=== PATIENT | female | born 1970 | race Two or more races ===

== ENCOUNTER 2020-10-25 13:35 | Outpatient (REF) | payer OTHER, SELFPAY ==
[2020-10-26 08:59] LABS: BV Int Neg Control Negative (Negative)
[2020-10-26 09:00] LABS: BV Int Pos Control Positive (Positive)
[2020-10-26 09:47] LABS: C. trachomatis RNA TMA NOT DETECTED (NOT DETECTED); N. gonorrhoeae RNA TMA NOT DETECTED (NOT DETECTED)
[2020-10-27 19:12] LABS: HPV mRNA E6/E7 rflx Not Detected (Not Detected)
== END 2020-10-25 13:36 | disposition home or self-care (01) ==
LOC: HO.LAB 13:35
PROVIDERS: Visit Provider Obstetrics & Gynecology
DX: Z01.419 Encounter for gynecological examination (general) (routine) without abnormal findings (principal); D64.9 Anemia, unspecified; N93.9 Abnormal uterine and vaginal bleeding, unspecified; N83.209 Unspecified ovarian cyst, unspecified side; Z11.3 Encounter for screening for infections with a predominantly sexual mode of transmission; Z20.2 Contact with and (suspected) exposure to infections with a predominantly sexual mode of transmission
CPT/HCPCS: 36415; 87480; 87491; 87510; 87591; 87624; 87660; 88142; 88305

== ENCOUNTER 2020-11-01 16:07 | Outpatient (REF) | payer OTHER, SELFPAY ==
[2020-11-01 17:38] LABS: Hemoglobin 9.2 g/dl (12.0-16.0); Lymphocytes Absolute Auto 1.5 X10*3/uL (1.2-4.9); Red Cell Distribution Width 18.6 % (11.0-16.0); SCAN SMEAR FLAG 1
[2020-11-01 17:40] LABS: Basophils Percent Auto 0.6 % (0-2); Eosinophils Absolute Auto 0.3 X10*3/uL (0.0-0.4); Imm Gran Abs Auto 0.02 X10*3/uL (0.00-0.03); Imm Gran Pct Auto 0.3 % (0.0-0.4); Mean Corpuscular HGB Conc 28.8 g/dl (31.0-35.0); Mean Corpuscular Volume 69.4 fL (80-98); Mean Platelet Volume 11.2 fL (9.4-12.3); Monocytes Absolute Auto 0.5 X10*3/uL (0.1-1.2); Monocytes Percent Auto 6.8 % (2-11); Neutrophils Absolute Auto 4.5 X10*3/uL (2.0-8.3); Neutrophils Percent Auto 66.3 % (45-73); Platelet Count 238 X10*3/uL (160-400); Red Blood Count 4.61 X10*6/uL (4.20-5.50); White Blood Count 6.8 X10*3/uL (4.8-10.8)
[2020-11-01 17:50] LABS: MANUAL DIFF FLAG NO; PLT ABN DIST 1
[2020-11-01 18:41] LABS: TSH reflex Free T4 1.67 uIU/mL (0.32-4.0)
[2020-11-02 08:25] LABS: HIV AB/AG Nonreactive (Nonreactive)
[2020-11-02 08:45] LABS: HBsAGNum1 0.15 S/CO (0.00-0.99); Hepatitis B Surface Antigen Negative (Negative)
[2020-11-02 09:21] LABS: CT PCR NOT DETECTED (Not Detect.); NG PCR NOT DETECTED (Not Detect.)
[2020-11-02 10:10] LABS: Syphilis Screen Nonreactive (Nonreactive)
== END 2020-11-01 16:08 | disposition home or self-care (01) ==
LOC: HO.LAB 16:07
PROVIDERS: Visit Provider Obstetrics & Gynecology
DX: N93.9 Abnormal uterine and vaginal bleeding, unspecified (principal); Z20.2 Contact with and (suspected) exposure to infections with a predominantly sexual mode of transmission; Z11.3 Encounter for screening for infections with a predominantly sexual mode of transmission
CPT/HCPCS: 84443; 85025; 86780; 87340; 87389; 87491; 87591

== ENCOUNTER 2020-11-15 15:32 | Outpatient (REF) | payer OTHER, SELFPAY ==
--- NOTE | ~2020-11-15 | US_ITS ---
EXAMINATION: PELVIC ULTRASOUND CLINICAL INFORMATION: Ovarian cyst COMPARISON: None TECHNIQUE: Transabdominal and transvaginal pelvic ultrasound was performed. Transvaginal exam was performed for better visualization of the uterus and ovaries. FINDINGS: The uterus is anteverted and measures 10 x 4.6 x 6.3 cm in dimension. Endometrial thickness is normal measuring 1.3 cm. There are 2 hypoechoic uterine lesions suggestive of fibroids measuring 3.1 x 2.5 x 3.1 cm in the left uterine body and 2.6 x 2.1 x 2 cm in the posterior uterine body. There are 2 small cysts in the uterus measuring 3 x 4 x 4 mm and 4 x 4 x 6 mm in the right upper uterine body. The right ovary is normal-appearing and measures 2.7 x 1.4 x 1.5 cm. The left ovary measures 2.6 x 1.8 x 2.1 cm and contains a minimally complex 1.4 x 1.1 x 1.7 cm cyst with single thin septation and 0.6 x 0.7 x 0.6 cm exophytic or paraovarian cyst. There is no fluid in the pelvis. US/US transvaginal IMPRESSION: Uterine fibroids. Small left ovarian cysts.
--- NOTE | ~2020-11-15 | US_ITS ---
EXAMINATION: PELVIC ULTRASOUND CLINICAL INFORMATION: Ovarian cyst COMPARISON: None TECHNIQUE: Transabdominal and transvaginal pelvic ultrasound was performed. Transvaginal exam was performed for better visualization of the uterus and ovaries. FINDINGS: The uterus is anteverted and measures 10 x 4.6 x 6.3 cm in dimension. Endometrial thickness is normal measuring 1.3 cm. There are 2 hypoechoic uterine lesions suggestive of fibroids measuring 3.1 x 2.5 x 3.1 cm in the left uterine body and 2.6 x 2.1 x 2 cm in the posterior uterine body. There are 2 small cysts in the uterus measuring 3 x 4 x 4 mm and 4 x 4 x 6 mm in the right upper uterine body. The right ovary is normal-appearing and measures 2.7 x 1.4 x 1.5 cm. The left ovary measures 2.6 x 1.8 x 2.1 cm and contains a minimally complex 1.4 x 1.1 x 1.7 cm cyst with single thin septation and 0.6 x 0.7 x 0.6 cm exophytic or paraovarian cyst. There is no fluid in the pelvis. US/US pelvic complete IMPRESSION: Uterine fibroids. Small left ovarian cysts.
== END 2020-11-15 15:33 | disposition home or self-care (01) ==
LOC: HO.US 15:32
PROVIDERS: Visit Provider Obstetrics & Gynecology
DX: N83.209 Unspecified ovarian cyst, unspecified side (principal)
CPT/HCPCS: 76830; 76856

== ENCOUNTER → 2020-11-29 11:32 | Outpatient (BNVA) | payer OTHER, SELFPAY | PROVIDERS: Visit Provider Obstetrics & Gynecology ==

== ENCOUNTER → 2020-12-20 14:13 | Outpatient (BNVA) | payer OTHER, SELFPAY | PROVIDERS: Visit Provider Nurse Practitioner Family ==

== ENCOUNTER → 2020-12-21 14:26 | Outpatient (BNVA) | payer OTHER, SELFPAY | PROVIDERS: Visit Provider Internal Medicine Cardiovascular Disease | DX: Z01.818 Encounter for other preprocedural examination (principal); R06.02 Shortness of breath; R07.89 Other chest pain; I10 Essential (primary) hypertension; D64.9 Anemia, unspecified; F41.9 Anxiety disorder, unspecified; R51.9 Headache, unspecified; Z79.899 Other long term (current) drug therapy | CPT/HCPCS: 93005; 99202 ==

== ENCOUNTER 2020-12-21 15:36 | Outpatient (REF) | payer OTHER, SELFPAY ==
[2020-12-21 16:36] LABS: Hematocrit 29.6 % (37-47)
[2020-12-21 16:38] LABS: Hemoglobin 8.5 g/dl (12.0-16.0); Mean Corpuscular HGB Conc 28.7 g/dl (31.0-35.0); Mean Corpuscular Volume 66.2 fL (80-98); Mean Platelet Volume 10.6 fL (9.4-12.3); Platelet Count 296 X10*3/uL (160-400); Red Blood Count 4.47 X10*6/uL (4.20-5.50); Red Cell Distribution Width 18.9 % (11.0-16.0); White Blood Count 7.5 X10*3/uL (4.8-10.8)
[2020-12-21 16:40] LABS: PLT ABN DIST 1
[2020-12-21 17:03] LABS: Alanine Aminotransferase 9 U/L (0-31); Albumin Level 4.1 g/dL (3.5-5.0); Alkaline Phosphatase 69 U/L (39-117); Anion Gap 11 (12-20); Aspartate Amino Transferase 14 U/L (5-31); B Type Natriuretic Peptide 54 pg/mL (<100); Bilirubin Total 0.4 mg/dL (0.0-1.0); Blood Urea Nitrogen 12 mg/dL (9-16); Calcium 9.2 mg/dL (8.4-10.2); Carbon Dioxide 27 mmol/L (22-29); Chloride 106 mmol/L (96-108); Estimated Glomerular Filt Rate > 60; Glucose Random 88 mg/dL (60-115); Potassium 4.8 mmol/L (3.3-5.1); Sodium 139 mmol/L (135-145)
== END 2020-12-21 15:37 | disposition home or self-care (01) ==
LOC: HO.LAB 15:36
PROVIDERS: Visit Provider Nurse Practitioner Family
DX: N93.9 Abnormal uterine and vaginal bleeding, unspecified (principal); R06.02 Shortness of breath
CPT/HCPCS: 36415; 80053; 83880; 85027

== ENCOUNTER 2021-01-04 15:00 | Outpatient (REF) | payer OTHER, SELFPAY ==
[2021-01-04 16:30] LABS: Ferritin 2 ng/mL (10-250)
== END 2021-01-04 15:01 | disposition home or self-care (01) ==
LOC: HO.LAB 15:00
PROVIDERS: Visit Provider Nurse Practitioner Family
DX: D64.9 Anemia, unspecified (principal); R74.8 Abnormal levels of other serum enzymes; N93.9 Abnormal uterine and vaginal bleeding, unspecified; K59.00 Constipation, unspecified; R06.02 Shortness of breath
CPT/HCPCS: 36415; 82728; 99212

== ENCOUNTER 2021-01-19 06:52 | Outpatient (REF) | payer OTHER, SELFPAY | END 2021-01-19 06:53 | disposition home or self-care (01) | LOC: HO.MDS 06:52 | PROVIDERS: Visit Provider Internal Medicine Medical Oncology | DX: D50.9 Iron deficiency anemia, unspecified (principal) | CPT/HCPCS: 96365; 96366; J1200; J1750; Q0163 ==

== ENCOUNTER → 2021-01-25 14:57 | Outpatient (BNVA) | payer OTHER, SELFPAY | PROVIDERS: Visit Provider Nurse Practitioner Family ==

== ENCOUNTER 2021-02-06 10:37 | Outpatient (REF) | payer OTHER, SELFPAY ==
--- NOTE | ~2021-02-06 | US_ITS ---
EXAMINATION: US PELVIS AND TRANSVAGINAL CLINICAL INFORMATION: Left ovarian cyst. COMPARISON: Ultrasound pelvis 11/15/2020 TECHNIQUE: Transabdominal and transvaginal imaging of pelvis is performed. FINDINGS: The uterus is anteverted and anteflexed measuring 10.1 cm in length, 5.0 cm in AP and 7.9 cm in transverse dimension. The endometrial thickness is 0.6 cm. There are 2 hypodense lesions seen. 1. Lesion in the posterior lower body of uterus measures 2.6 x 1.8 x 2.0 cm. Previously, it measured 2.6 x 2.1 x 2.0 cm. 2. Lesion in the left upper body of uterus measures 2.4 x 2.1 x 2.6 cm. Previously, it measured 3.1 x 2.5 x 3.1 cm. There are small anechoic nabothian cysts seen in the cervix. Previously seen 3rd and 4th lesions likely cysts are not visualized at this time. The right ovary measures 3.5 x 1.9 x 1.4 cm and volume 4.9 mL. There is an anechoic cyst measuring 1.2 x 1.2 x 0.9 cm. The left ovary measures 2.2 x 1.6 x 1.6 cm and volume 3.0 mL. There is an anechoic cyst measuring 0.44 x 0.33 x 0.37 cm. Previously seen cyst with a daughter cyst is not seen at this time. Previously, the left ovary measured 2.6 x 1.8 x 2.1 cm. US/US pelvic and transvaginal IMPRESSION: At least 2 uterine fibroids visualized. The other 2 seen previously were cysts and are not seen at this time. Small nabothian cysts in the cervix. Bilateral ovarian cysts.
== END 2021-02-06 10:38 | disposition home or self-care (01) ==
LOC: HO.US 10:37
PROVIDERS: Visit Provider Obstetrics & Gynecology
DX: N83.299 Other ovarian cyst, unspecified side (principal)
CPT/HCPCS: 76830; 76856

== ENCOUNTER → 2021-02-13 09:52 | Outpatient (BNVA) | payer OTHER, SELFPAY | PROVIDERS: Visit Provider Obstetrics & Gynecology ==

== ENCOUNTER → 2021-02-24 11:48 | Outpatient (BNVA) | payer OTHER, SELFPAY | PROVIDERS: Visit Provider Nurse Practitioner Family ==

== ENCOUNTER → 2021-02-27 10:17 | Outpatient (REF) | payer OTHER, SELFPAY ==
--- NOTE | 2021-02-27 10:23 | CA_ITS ---
Acquisition Time: 2021-02-27 11:21:14 Total Exercise Time: 00:06:41 Test Indications: CP,SOB Medications: SEE CHART Protocol: JAVON Max HR: 164 BPM 97% of Pred: 168 BPM Max BP: 154/090 mmHG Max Work Load: 8.0 METS Exercise stress ECHO using Javon protocol, total of 6 min 41 sec METS 8.00and TAPHR up to 97%. . Pt tolerated well, denies any anginal sx. EKG without any arrhythmias. No ischemic changes seen during exercise or in recovery. ECHO images taken at rest and immediately after peak exercfise HR achieved. Definity contrast used. Normotensive response to exercise. Test reviewed with Dr. Robin. Exercise stress echocardiogram was reviewed. At rest, there is normal LVEF and wall motion. With peak exercise, there is no evidence of exercise induced wall motion abnormalities. There is normal decrease in end-systolic volumes. Overall, this is a normal exercise stress echocardiogram. Referred By: Davin Chua Overread By: SAMI ANGUIANO
--- NOTE | 2021-02-27 10:23 | CA_ITS ---
Transthoracic Echocardiogram Patient (Last, First, Middle): Gisselle Moise, Gender: Female Date of : 1970 Age: 50 Procedure Date: 02/27/2021 Procedure Type: Transthoracic Echocardiogram Location: OP Height: 160.02 cm Weight: 74.39 kg BSA: 1.78 m2 Heart Rate: bpm BP: 120 / 80 mmHg Deputy Controller: Neeta MD: Davin Chua MD Symptoms: R06.02 - Shortness of breath Study Quality: Fair ECG Rhythm: Sinus Conclusions: - The left ventricular systolic function is normal. The visually estimated ejection fraction is between 55-60%. - There is mild tricuspid valve regurgitation. Findings Left Ventricle Normal left ventricular cavity size. There is normal left ventricular wall thickness. The left ventricular systolic function is normal. The visually estimated ejection fraction is between 55-60%. There is no evidence of regional wall motion abnormalities. Diastolic function is normal for age. Right Ventricle Normal right ventricular cavity size and systolic function. Atria Top normal LA size. The right atrium is normal in size. Aortic Valve There is a normal trileaflet aortic valve. There is no aortic valve stenosis. There is no aortic valve regurgitation. Mitral Valve The mitral valve appears normal. There is trace mitral valve regurgitation. There is no mitral valve stenosis. Pulmonic Valve The pulmonic valve was not well visualized. Tricuspid Valve Normal tricuspid valve structure. There is mild tricuspid valve regurgitation. The pulmonary artery systolic pressure is normal. Great Vessels The aortic annulus, sinuses of valsalva, and asc aorta are normal in size. Venous The inferior vena cava is normal in size and collapses greater than 50% with inspiration. Pericardium/Pleural There is a trivial pericardial effusion. Prior Study Comparison No prior study available for comparison. Measurements 2D Linear Measurements IVSd: 1.11 0.6-0.9/0.6-1.0 cm LVIDd: 3.59 3.9-5.3/4.2-5.9 cm LVIDd Index: 2.02 2.4-3.2/2.2-3.1 cm/m2 LVIDs: 2.08 2.0-3.6 cm LVPWd: 0.99 0.7-1.1 cm Ao Root: 2.70 2.1-3.5 cm LA Diam: 4.60 2.7-3.8/3.0-4.0 cm LAIDs Index: 2.58 1.5-2.3 cm/m2 LV Mass: 143.57 67-162/88-224 g LV Mass Index: 80.66 43-95/49-115 g/m2 LVOT Diam: 2.00 3.0+(-)1.3 cm Mitral Valve MV Pk E: 0.96 MV PK A: 0.66 MV Decel Time: 171.00 E/A: 1.40 E'Lateral: 11.00 E'Medial: 8.70 E/E' Med: 11.00 E/E' Lat: 8.70 PHT: 50.00 MVA PHT: 4.40 Decel Runnels: 5.58 Aortic Valve AoV Pk Venkatesh: 1.55 AoV Mn Venkatesh: 0.95 AoV VTI: 0.30 AoV Pk Grad: 10.00 Aov Mn Grad: 4.00 CHARLA Cont.VTI: 2.01 LVOT LVOT Pk Venkatesh: 0.93 LVOT Mn Venkatesh: 0.58 LVOT VTI: 0.19 LVOT Pk Grad: 3.00 LVOT Mn Grad: 2.00 LVOT Diam: 2.00 LVOT Area: 3.14 Diastolic Function MV Pk E: 0.96 MV Pk A: 0.66 E/A: 1.40 E'Medial: 8.70 E/E' Med: 11.00 E' Laterial: 11.00 E/E' Lat: 8.70 Tricuspid Valve TR Pk Venkatesh: 2.41 TR Pk Grad: 23.00 RA Press: 3.00 RVSP: 26.00 Great Vessels Aorta Ao Root-2D: 2.70 2.0-3.7 cm Ao Asc: 3.00 2.1-3.4 cm Updated in Other Vendor System with Status of Final Serge Tyson MD electronically signed on 02/27/2021 12:30:22 PM with status of Final
[2021-02-27 13:37] LABS: Hematocrit 40.1 % (37-47); Mean Corpuscular HGB Conc 29.9 g/dl (31.0-35.0); Mean Corpuscular Hemoglobin 23.7 pg (27.0-33.0); Mean Corpuscular Volume 79.2 fL (80-98); Platelet Count 222 X10*3/uL (160-400); Red Blood Count 5.06 X10*6/uL (4.20-5.50); White Blood Count 5.3 X10*3/uL (4.8-10.8)
== END ==
LOC: HO.CARD 10:17
PROVIDERS: Referring Provider Nurse Practitioner Family; Visit Provider Internal Medicine Cardiovascular Disease
DX: R06.02 Shortness of breath (principal); D64.9 Anemia, unspecified; D50.9 Iron deficiency anemia, unspecified
CPT/HCPCS: 36415; 85027; 93306; 93350; Q9957

== ENCOUNTER → 2021-04-05 14:36 | Outpatient (BNVA) | payer OTHER, SELFPAY | PROVIDERS: Visit Provider Nurse Practitioner Family ==

== ENCOUNTER 2021-06-05 08:43 | Day surgery (SDC) | payer OTHER, SELFPAY ==
[2021-05-30 14:46] VITALS: BMI 29.2
--- NOTE | 2021-06-02 09:02 | HO.ANESPROP2 ---
Documented by User: Ariana Meyer NP 06/02/21 09:05 HPI - Anesthesia Eval Consult details Narrative: 51yo F for Colonoscopy Cardiac cleared PMFSH Active Problems Active Problems: All Active Problems (Updated 01/06/21 @ 13:08 by Carline Tony MD) Iron deficiency anemia (Acute) Anemia (Acute) SOB (shortness of breath) (Acute) Chest tightness (Acute) Past Medical History Medical History Anemia Anxiety Chronic headaches HTN (hypertension) Family History Family History Mother Diabetes Brother Cancer Father No problems noted. Social History Social History Household Members: Significant Other and Children Are you a primary home health care provider to a significant other at home: No Do you presently have visiting nurse or other home services: No Alcohol intake: current Alcohol intake frequency: a few times a week Patient Tobacco Use Status: Never used Tobacco Use of substances other than those prescribed or required for medical reasons: No Have you been hit, kicked, punched, or otherwise hurt by someone within the past year? If so, by whom?: No Are you DNR?: Yes Advance Directives: No Advance Directives Information Provided: No Advance Directives on File: No Recently lost weight without trying: No Eating poorly because of decreased appetite: No Nutrition Risks: No Nutritional Risk Patient : No FDLMP: 05/28/21 Current occupational status: disabled Gender identity: Female Meds Allergies Allergy/AdvReac Type Severity Reaction Status Date / Time No Known Allergies Allergy Verified 05/30/21 14:41 Home Medications Medication Instructions Recorded Confirmed Last Taken Type lisinopril 10 mg tablet 10 mg PO DAILY 10/25/20 05/30/21 Unknown History chlorhexidine gluconate 0.12 % 15 ml PO 02/24/21 Unknown History mouthwash ferrous sulfate 325 mg (65 mg 1 tab PO TID 05/30/21 05/30/21 Unknown History iron) tablet Exam Exam Date and Time: June 02, 2021 09 Height,Weight and Vital Signs: Height 5 ft 4 in Weight 77.111 kg Pertinent Lab Results Pertinent Lab Results: Laboratory Tests 01/06/21 02/27/21 13:30 12:42 WBC 5.3 Hgb 12.0 D Hct 40.1 D Plt Count 222 D Sodium 141 Potassium 4.3 Chloride 106 Carbon Dioxide 28 BUN 11 Creatinine 0.71 Narrative Narrative: EKG 12/2020 NSR, minimal voltage criteria for LVH, ST-T changes consider inferior ischemia. QTc 416 msec. Echo 02/2021 Conclusions: - The left ventricular systolic function is normal.? The visually estimated ejection fraction is between 55-60%. ? - There is mild tricuspid valve regurgitation. ? ? ? Stress Echo 02/2021 Protocol: ABHI ? Max HR: 164 BPM? 97% of? Pred: 168 BPM Max BP: 154/090 mmHG Max Work Load: 8.0 METS ? Exercise stress ECHO using Abhi protocol, total of 6 min 41 sec METS 8.00and ?TAPHR up to 97%. .? Pt tolerated well, denies any anginal sx.? EKG without any ?arrhythmias.? No ischemic changes seen during exercise or in recovery.? ECHO ?images taken at rest and immediately after peak exercfise HR achieved. ?Definity contrast used.? Normotensive response to exercise.? Test reviewed with ?Dr. Robin. ? Exercise stress echocardiogram was reviewed. At rest, there is normal LVEF and wall motion.? With peak exercise, there is no? evidence of exercise induced wall motion abnormalities. There is normal decrease in end-systolic volumes. Overall, this is a? normal exercise stress echocardiogram.? Assessment and Plan Assessment Anesthesia Assessment: Chart Reviewed Documented by User: Jenny Diop MD 06/05/21 11:10 [facility] Past Medical History Medical History Anemia Anxiety Chronic headaches HTN (hypertension) Functional capacity: independent ambulation Patient : No Family History Family History Mother Diabetes Brother Cancer Father No problems noted. Social History Social History Household Members: Significant Other and Children Are you a primary home health care provider to a significant other at home: No Do you presently have visiting nurse or other home services: No Alcohol intake: current Alcohol intake frequency: a few times a week Patient Tobacco Use Status: Never used Tobacco Use of substances other than those prescribed or required for medical reasons: No Have you been hit, kicked, punched, or otherwise hurt by someone within the past year? If so, by whom?: No Are you DNR?: Yes Advance Directives: No Advance Directives Information Provided: No Advance Directives on File: No Recently lost weight without trying: No Eating poorly because of decreased appetite: No Nutrition Risks: No Nutritional Risk Patient : No FDLMP: 05/28/21 Current occupational status: disabled Gender identity: Female Meds Allergies Allergy/AdvReac Type Severity Reaction Status Date / Time No Known Allergies Allergy Verified 05/30/21 14:41 Home Medications Medication Instructions Recorded Confirmed Last Taken Type lisinopril 10 mg tablet 10 mg PO DAILY 10/25/20 05/30/21 Unknown History chlorhexidine gluconate 0.12 % 15 ml PO 02/24/21 Unknown History mouthwash ferrous sulfate 325 mg (65 mg 1 tab PO TID 05/30/21 05/30/21 Unknown History iron) tablet Exam Airway Mallampati Class: II TM Dist: >3cm Neck ROM: Full Heart: RRR Lungs: CTA
[2021-06-05 10:23] VITALS: BMI 28.0
[2021-06-05 10:30] VITALS: BP 151/82; PULSE 73; RESP 18; TEMP 36; O2SAT 99
--- NOTE | 2021-06-05 10:36 | MHC.SHP ---
Pre-Procedural Eval Section A Date of Service: 06/05/21 Section B Chief Complaint: Screening Relevant Family History (Specify if Yes): No Relevant Social History: None Present Medications: see Short Stay Collaborative assessment Medical History: Significant History (Anemia Anxiety Chronic headaches HTN (hypertension)) History of Previous Operations: No relevant previous surgery Allergies: Allergies Allergy/AdvReac Type Severity Reaction Status Date / Time No Known Allergies Allergy Verified 05/30/21 14:41 Review of Systems Sugical H&P ROS: Negative: Constitution, Cardiovascular, Respiratory, Neurological, Psychiatric, Hem-Onc, Allergic/Immunologic, Gastrointestinal, Genitourinary, Musculoskeletal, Integumentary, Endocrine and Eyes/Ears/Nose/Throat Exam Surgical H&P Exam: Normal: HEENT, Normal: Heart, Normal: Lungs, Normal: Extremities, Normal: Abdomen, Normal: Skin and Normal: Neurological Plan Diagnosis/Plan: Unchanged I have reviewed the history and physical and performed a pertinent physical examination on my patient. No changes have occurred unless specified.
[2021-06-05] MEDS: Lactated Ringers 1,000 ML 100 ML IVCONT (10:55)
--- NOTE | 2021-06-05 11:31 | P.BOP_ITS ---
Brief Operative Note Date of Service: 06/05/21 Pre-op diagnosis: screening Post-op diagnosis: same Procedure: see op note Surgeon: Geoffrey Chang MD Anesthesia: MAC Was an Knurling Machine Operator used for this Procedure?: No Estimated blood loss (mL): 0 Condition: stable Disposition: PACU
--- NOTE | 2021-06-05 11:31 | W.PM.OPN ---
Operative Note Operative Note Date of Service: 06/05/21 Narrative: Operative Information Procedure Description: Colonoscopy COLONOSCOPY Instrument: Olympus variable stiffness pediatric scope 190L Colonoscopy Monitoring: Vital signs and clinical assessment, continuous EKG monitoring, Pulse oximetry, Carbon Dioxide monitoring and blood pressure monitoring were done throughout the procedure. Colon withdrawal time was 12 minutes. Procedure: The patient was placed in the left lateral decubitis position and pre-procedure medications were administered. After a digital rectal examination of the ano-rectum, the video colonoscope was inserted into the rectum and advanced through the colon to the cecum/TI. The colonoscope was slowly withdrawn in a retrograde panoramic fashion and the colon mucosa was carefully examined including a retroflexed view of the rectum. Findings and interventions are described below. Procedure Difficulty: difficult due to looping, placed on back and pressure applied Findings: Terminal Ileum-normal Cecum:normal Ascending Colon: normal Transverse Colon -normal Descending Colon:normal Sigmoid Colon: normal Rectum: Retroflexion with small internal hemorrhoids, grade I Anorectum - normal Colon preparation: [place] Bowel Preparation Scale Right colon; 2 Transverse colon: 2 Left colon; 1 (0 = Unprepared colon segment with mucosa not seen due to solid stool that cannot be cleared. 1 = Portion of mucosa of the colon segment seen, but other areas of the colon segment not well seen due to staining, residual stool and/or opaque liquid. 2 = Minor amount of residual staining, small fragments of stool and/or opaque liquid, but mucosa of colon segment seen well. 3 = Entire mucosa of colon segment seen well with no residual staining, small fragments of stool or opaque liquid) Impression and Post Procedure Diagnosis: internal hemorrhoids with skin tag Plan: High fiber diet leaflet Avoid straining at stool, epsom salts and sitz bath, anusol supps or cream Repeat Colonoscopy in 3 years due to left sided prep or earlier if clinically indicated Above findings were reviewed with the patient and relevant handouts were provided if indicated.
[2021-06-05 11:38] VITALS: BP 124/75; PULSE 90; RESP 16; TEMP 36.2; O2SAT 96
[2021-06-05 11:52] VITALS: BP 117/77; PULSE 70; RESP 16; TEMP 36.2; O2SAT 98
--- NOTE | 2021-06-05 12:56 | HO.POSTANES ---
Post Anesthesia Evaluation Post Anesthesia Evaluation Vital Signs: Vital Signs Temp Pulse Resp BP Pulse Ox 06/05/21 11:52 97.1 F 70 16 117/77 98 06/05/21 11:38 97.1 F 90 16 124/75 96 06/05/21 10:30 96.8 F 73 18 151/82 H 99 Anesthesia: Monitored Mental Status: Awake Pain Control: Satisfactory Nausea/Vomiting: None Hydration: Adequate Anesthesia-Related Issues: No Anes. Related Issues
== END 2021-06-05 12:54 | disposition home or self-care (01) ==
PROVIDERS: Visit Provider Internal Medicine Gastroenterology
PROC: 0DJD8ZZ Inspection of Lower Intestinal Tract, Via Natural or Artificial Opening Endoscopic (ICD-10-PCS; CPT 45378; principal; 2021-06-05 10:50)
DX: Z12.11 Encounter for screening for malignant neoplasm of colon (principal); K64.0 First degree hemorrhoids; K64.4 Residual hemorrhoidal skin tags; D50.9 Iron deficiency anemia, unspecified; I10 Essential (primary) hypertension
CPT/HCPCS: 45378

== ENCOUNTER → 2021-06-28 14:43 | Outpatient (BNVA) | payer OTHER, SELFPAY | PROVIDERS: Visit Provider Nurse Practitioner Family ==

== ENCOUNTER 2021-07-10 14:09 | Outpatient (REF) | payer OTHER, SELFPAY ==
[2021-07-10 14:45] LABS: Hemoglobin 11.2 g/dl (12.0-16.0); Mean Corpuscular HGB Conc 30.3 g/dl (31.0-35.0); Mean Corpuscular Hemoglobin 25.8 pg (27.0-33.0); Mean Corpuscular Volume 85.3 fL (80.0-98.0); Mean Platelet Volume 11.1 fL (9.4-12.3); Platelet Count 308 X10*3/uL (160-400); Red Blood Count 4.34 X10*6/uL (4.20-5.50); Red Cell Distribution Width 13.3 % (11.0-16.0); White Blood Count 6.7 X10*3/uL (4.8-10.8)
== END 2021-07-10 14:10 | disposition home or self-care (01) ==
LOC: HO.LAB 14:09
PROVIDERS: Visit Provider Nurse Practitioner Family
DX: D50.9 Iron deficiency anemia, unspecified (principal); Z12.11 Encounter for screening for malignant neoplasm of colon
CPT/HCPCS: 36415; 85027

== ENCOUNTER 2021-09-06 09:17 | Outpatient (REF) | payer OTHER, SELFPAY ==
--- NOTE | ~2021-09-06 | MM_ITS ---
EXAMINATION: MM DIAGNOSTIC DIGITAL BREAST TOMOSYNTHESIS, BILATERAL US DIAGNOSTIC ULTRASOUND BREAST, RIGHT CLINICAL INFORMATION: Right breast pain for 3 weeks. Due for yearly. Prior outside mammography performed in [place], [place], currently unavailable. The lifetime risk of breast cancer based on the Tyrer-Cuzick Model is 9%. COMPARISON: None. TECHNIQUE: Digital breast tomosynthesis is performed in both the craniocaudal and mediolateral oblique views along with computer-aided detection (CAD). Synthesized 2D images are generated from the tomosynthesis. Ultrasound right breast is targeted to the areas of clinical concern 7:00 through 9:00 position and periareolar region. Additional targeted ultrasound performed superior right breast responding to nodular asymmetry on mammography. Grayscale imaging and color Doppler are performed without and with harmonics. FINDINGS: The breasts are heterogeneously dense, which may obscure small masses (ACR BI-RADS breast composition Category c). Left breast is unremarkable. There is no left mass or architectural abnormality. Neither breast shows abnormal calcifications. Some fine peripheral density is present left axillary nodes likely related to tattoo pigment. No enlarged nodes. Prior granulomatous changes may have similar appearance. Skin contours are smooth. Right MLO view has oval nodular asymmetric density mid upper breast measuring 0.9 x 0.6 cm. There is no skin thickening or coarsening of the Pancho's ligaments. Ultrasound oval isoechoic nodule 11:00 position 8 cm from nipple with macrolobulated margins measuring approximately 0.9 x 0.5 x 0.8 cm. No increased or decreased through transmission of sound. This may represent a fibroadenoma and likely corresponds to the nodular asymmetry on right MLO view. The remainder of the right breast is imaged with ultrasound shows no cystic or solid mass, architectural abnormality, or focal duct ectasia. There is no skin thickening or edema tracking in soft tissue planes. Results are discussed with the patient at time of visit. Radiology department will attempt to retrieve prior [id number] mammography to allow for comparison in an addendum report. If prior outside exams are unable to be located, then right right breast will be reassessed again in 6 months. MM/MM tomosynthesis diagnostic BI IMPRESSION: 1. No mammographic evidence of malignancy or inflammatory changes. 2. Nodular asymmetry upper right breast, possibly a fibroadenoma on targeted ultrasound. ASSESSMENT: BI-RADS 3: Probably Benign RECOMMENDATION: 1. Patient's right breast pain should be be managed based on the clinical impression. 2. Radiology department will attempt to retrieve prior [id number] mammography to allow for comparison in an addendum report. If prior outside exams are unable to be retrieved, then short interval follow-up right mammography and targeted right breast ultrasound will be requested to follow probable fibroadenoma upper right breast. This patient's information was entered into a reminder system with a target due date for their next mammogram.
== END 2021-09-06 09:18 | disposition home or self-care (01) ==
LOC: HO.MAMMO 09:17
PROVIDERS: Visit Provider Obstetrics & Gynecology
DX: N64.4 Mastodynia (principal)
CPT/HCPCS: 76642; 77062; 77066

== ENCOUNTER → 2021-09-11 12:26 | Outpatient (BNVA) | payer OTHER, SELFPAY | PROVIDERS: Visit Provider Obstetrics & Gynecology | DX: N64.4 Mastodynia (principal) | CPT/HCPCS: 99212 ==

== ENCOUNTER → 2021-10-11 15:50 | Outpatient (BNVA) | payer OTHER, SELFPAY | PROVIDERS: Visit Provider Surgery | DX: N63.11 Unspecified lump in the right breast, upper outer quadrant (principal); I10 Essential (primary) hypertension; D64.9 Anemia, unspecified; F41.9 Anxiety disorder, unspecified; Z79.899 Other long term (current) drug therapy | CPT/HCPCS: 99202 ==

== ENCOUNTER 2021-10-30 14:21 | Outpatient (REF) | payer OTHER, SELFPAY ==
[2021-10-30 16:03] LABS: Hematocrit 33.7 % (37.0-47.0); Hemoglobin 9.7 g/dl (12.0-16.0); Mean Corpuscular HGB Conc 28.8 g/dl (31.0-35.0); Mean Corpuscular Hemoglobin 21.3 pg (27.0-33.0); Mean Corpuscular Volume 74.1 fL (80.0-98.0); Mean Platelet Volume 11.9 fL (9.4-12.3); Platelet Count 314 X10*3/uL (160-400); Red Blood Count 4.55 X10*6/uL (4.20-5.50); Red Cell Distribution Width 19.3 % (11.0-16.0); White Blood Count 6.2 X10*3/uL (4.8-10.8)
[2021-10-30 16:08] LABS: Appearance Urine CLEAR; Color Urine YELLOW; Glucose Urine UA NEG (NEG); Leukocyte Esterase Urine NEG (NEG); Nitrite Urine NEG (NEG); PH 6.5 (5.0-8.0); Urine Blood NEG (NEG); Urine Ketones NEG (NEG); Urine Protein NEG (NEG-TRACE)
[2021-10-30 16:52] LABS: Thyroid Stimulating Hormone 1.43 uIU/mL (0.32-4.0)
[2021-10-31 03:06] LABS: CT PCR NOT DETECTED (Not Detect.); NG PCR NOT DETECTED (Not Detect.)
[2021-10-31 08:56] LABS: Follicle Stimulating Hormone 7.3 mIU/mL
[2021-10-31 14:12] LABS: BV Int Neg Control Negative (Negative); BV Int Pos Control Positive (Positive)
== END 2021-10-30 14:22 | disposition home or self-care (01) ==
LOC: HO.LAB 14:21
PROVIDERS: Visit Provider Advanced Practice Midwife
DX: Z01.411 Encounter for gynecological examination (general) (routine) with abnormal findings (principal); N92.0 Excessive and frequent menstruation with regular cycle; N94.10 Unspecified dyspareunia; D25.9 Leiomyoma of uterus, unspecified; R30.0 Dysuria; R23.2 Flushing; N92.1 Excessive and frequent menstruation with irregular cycle
CPT/HCPCS: 36415; 81003; 83001; 84443; 85027; 87480; 87491; 87510; 87591; 87660

== ENCOUNTER 2021-11-22 12:56 | Outpatient (REF) | payer OTHER, SELFPAY ==
--- NOTE | ~2021-11-22 | US_ITS ---
EXAMINATION: US PELVIS CLINICAL INFORMATION: Excessive and frequent menstruation. COMPARISON: Pelvic ultrasound done on 02/06/2021. TECHNIQUE: Ultrasound of the pelvis is performed using both transabdominal and transvaginal transducers along with Doppler. Transvaginal imaging is performed due to inadequate visualization transabdominally. FINDINGS: Uterus: The uterus is anteverted and measures 9.8 x 5.6 x 8.9 cm. Volume of 255). The double wall endometrial thickness is 0.6 mm. The uterus is smooth in contour and has normal myometrial echogenicity. There are 2 circumscribed solid masses identified within the posterior wall of the fundus and body, measures 2.6 x 2.1 x 2.4 and 3.5 x 2.7 x 3.6 cm, previously measured 2.6 x 1.8 x 2.0 and 2.4 x 2.1 x 2.6 cm respectively. No new abnormalities. Nabothian cysts are noted in the cervix. Adnexa: Both ovaries are visualized. There is normal color flow to the adnexa. There is no ovarian torsion. There is no pelvic ascites or fluid collection. Right ovary measures 1.9 x 1.3 x 1.3 cm. Previously 3.5 x 1.9 x 1.4 Left ovary measures 2.6 x 2.0 x 1.5 cm. Previously 2.2 x 1.6 x 1.6 US/US pelvic and transvaginal IMPRESSION: 1. Previously documented uterine fibroids are reidentified. The largest is seen at the posterior wall of the fundus, shows interval increase in size since 02/06/2021. The second smaller lesion seen within the posterior wall of the body of the uterus appears stable. No new abnormalities 2. Sonographically unremarkable ovaries, unchanged.
== END 2021-11-22 12:57 | disposition home or self-care (01) ==
LOC: HO.US 12:56
PROVIDERS: Visit Provider Advanced Practice Midwife
DX: N92.0 Excessive and frequent menstruation with regular cycle (principal)
CPT/HCPCS: 76830; 76856

== ENCOUNTER → 2021-12-06 11:26 | Outpatient (BNVA) | payer OTHER, SELFPAY | PROVIDERS: Visit Provider Advanced Practice Midwife | DX: Z13.89 Encounter for screening for other disorder (principal) ==

== ENCOUNTER 2022-07-05 14:23 | Outpatient (REF) | payer MEDICAID, SELFPAY ==
[2022-07-05 15:13] LABS: Hemoglobin 10.3 g/dl (12.0-16.0); Mean Corpuscular Volume 68.1 fL (80.0-98.0)
[2022-07-05 15:15] LABS: Hematocrit 35.8 % (37.0-47.0); Mean Corpuscular HGB Conc 28.8 g/dl (31.0-35.0); Mean Corpuscular Hemoglobin 19.6 pg (27.0-33.0); Platelet Count 264 X10*3/uL (160-400); Red Blood Count 5.26 X10*6/uL (4.20-5.50); Red Cell Distribution Width 24.5 % (11.0-16.0); White Blood Count 7.1 X10*3/uL (4.8-10.8)
[2022-07-05 15:30] LABS: PLT ABN DIST 1
[2022-07-06 10:10] LABS: BV Int Neg Control Negative (Negative); BV Int Pos Control Positive (Positive)
== END 2022-07-05 14:24 | disposition home or self-care (01) ==
LOC: HO.LNP 14:23
PROVIDERS: Visit Provider Advanced Practice Midwife
DX: R10.2 Pelvic and perineal pain (principal); N93.8 Other specified abnormal uterine and vaginal bleeding
CPT/HCPCS: 85027; 87480; 87510; 87660; 99212

== ENCOUNTER 2022-07-05 14:28 | Outpatient (REF) | payer MEDICAID, SELFPAY | END 2022-07-05 14:29 | disposition home or self-care (01) | LOC: HO.LAB 14:28 | PROVIDERS: PCP Registered Nurse; Visit Provider Advanced Practice Midwife | DX: Z13.89 Encounter for screening for other disorder (principal) ==

== ENCOUNTER 2022-08-14 13:00 | Outpatient (REF) | payer MEDICAID, SELFPAY ==
--- NOTE | ~2022-08-14 | US_ITS ---
EXAMINATION: US PELVIC AND TRANSVAGINAL CLINICAL INFORMATION: Abnormal uterine and vaginal bleeding. COMPARISON: Ultrasound pelvis 11/22/2021. TECHNIQUE: Ultrasound of the pelvis is performed using both transabdominal and transvaginal transducers along with Doppler. Transvaginal imaging is performed due to inadequate visualization transabdominally. FINDINGS: UTERUS: The uterus is anteverted, anteflexed and measures 12.2 x 5.0 x 8.0. Nabothian cysts are present in the cervix. The double wall endometrial thickness is 0.9 mm. The uterus is smooth in contour and has normal myometrial echogenicity. Two uterine fibroids are seen on the current study, one has increased in size and one has decreased in size. A fundal fibroid measures 3.2 x 3.7 x 3.6 cm (previously 2.6 x 2.1 x 2.4 cm). An additional fundal fibroid measures 3.1 x 2.8 x 2.5 cm (previously 3.3 x 2.7 x 3.6 cm). Two smaller subcentimeter fibroids seen previously are not identified on the current study. ADNEXA: Both ovaries are visualized. There is normal color flow to the adnexa. There is no ovarian torsion. There is no pelvic ascites or fluid collection. Right ovary measures 5.2 x 1.8 x 2.2 cm for a volume of 6.8 mL. Left ovary measures 2.8 x 2.5 x 2.2 cm for a volume of 8.1 mL and contains 2 cysts measuring between 1.1 and 1.3 cm in size. US/US pelvic and transvaginal IMPRESSION: Uterine fibroids once again demonstrated, one of which has increased in size and the other decreased in size slightly.
== END 2022-08-14 13:01 | disposition home or self-care (01) ==
LOC: HO.US 13:00
PROVIDERS: Visit Provider Advanced Practice Midwife
DX: N93.8 Other specified abnormal uterine and vaginal bleeding (principal)
CPT/HCPCS: 76830; 76856

== ENCOUNTER → 2022-08-28 13:05 | Outpatient (BNVA) | payer MEDICAID, SELFPAY | PROVIDERS: PCP Registered Nurse; Visit Provider Advanced Practice Midwife | DX: Z71.2 Person consulting for explanation of examination or test findings (principal); D25.9 Leiomyoma of uterus, unspecified | CPT/HCPCS: 99212 ==

== ENCOUNTER 2022-09-10 12:07 | Outpatient (REF) | payer MEDICAID, SELFPAY ==
--- NOTE | ~2022-09-10 | MM_ITS ---
EXAMINATION: MM SCREENING DIGITAL BREAST TOMOSYNTHESIS, BILATERAL CLINICAL INFORMATION: Screening. Asymptomatic. The lifetime risk of breast cancer based on the Tyrer-Cuzick Model is 7.4%. COMPARISON: Mammography: September 06, 2021 and studies dating back to March 26, 2012 TECHNIQUE: Digital breast tomosynthesis is performed in both the craniocaudal and mediolateral oblique views along with computer-aided detection (CAD). Synthesized 2D images are generated from the tomosynthesis. FINDINGS: The breasts are heterogeneously dense, which may obscure small masses (ACR BI-RADS breast composition Category c). There are no significant masses, abnormal calcifications, or other abnormalities. MM/MM tomosynthesis screening BI IMPRESSION: No significant changes from prior exam. ASSESSMENT: BI-RADS 1: Negative RECOMMENDATION: Routine annual mammography screening. This patient's information was entered into a reminder system with a target due date for their next mammogram.
== END 2022-09-10 12:08 | disposition home or self-care (01) ==
LOC: HO.MAMMO 12:07
PROVIDERS: Visit Provider Obstetrics & Gynecology
DX: Z12.31 Encounter for screening mammogram for malignant neoplasm of breast (principal)
CPT/HCPCS: 77063; 77067

== ENCOUNTER 2022-09-11 09:27 | Outpatient (REF) | payer MEDICAID, SELFPAY | END 2022-09-11 09:28 | disposition home or self-care (01) | LOC: HO.MDS 09:27 | PROVIDERS: Visit Provider Internal Medicine Medical Oncology | DX: D50.9 Iron deficiency anemia, unspecified (principal) | CPT/HCPCS: 96365; J1756 ==

== ENCOUNTER 2022-09-19 13:03 | Outpatient (REF) | payer MEDICAID, SELFPAY | END 2022-09-19 13:04 | disposition home or self-care (01) | LOC: HO.MDS 13:03 | PROVIDERS: Visit Provider Internal Medicine Medical Oncology | DX: D50.9 Iron deficiency anemia, unspecified (principal) | CPT/HCPCS: J1756 ==

== ENCOUNTER 2022-09-26 11:51 | Outpatient (REF) | payer MEDICAID, SELFPAY | END 2022-09-26 11:52 | disposition home or self-care (01) | LOC: HO.MDS 11:51 | PROVIDERS: Visit Provider Internal Medicine Medical Oncology | DX: D50.9 Iron deficiency anemia, unspecified (principal) | CPT/HCPCS: 96365; J1756 ==

== ENCOUNTER 2022-10-02 13:04 | Outpatient (REF) | payer MEDICAID, SELFPAY ==
[2022-10-02 13:55] LABS: MANUAL DIFF FLAG NO
[2022-10-02 14:01] LABS: Basophils Percent Auto 0.6 % (0-2); Eosinophils Absolute Auto 0.3 X10*3/uL (0.0-0.4); Eosinophils Percent Auto 5.3 % (0-4); Hematocrit 37.3 % (37.0-47.0); Hemoglobin 11.4 g/dl (12.0-16.0); Imm Gran Abs Auto 0.01 X10*3/uL (0.00-0.03); Imm Gran Pct Auto 0.2 % (0.0-0.4); Lymphocytes Percent Auto 22.1 % (20-40); Mean Corpuscular HGB Conc 30.6 g/dl (31.0-35.0); Mean Corpuscular Hemoglobin 24.3 pg (27.0-33.0); Mean Corpuscular Volume 79.5 fL (80.0-98.0); Mean Platelet Volume 10.5 fL (9.4-12.3); Monocytes Absolute Auto 0.3 X10*3/uL (0.1-1.2); Monocytes Percent Auto 5.7 % (2-11); Neutrophils Absolute Auto 3.1 x10*3/uL (2.0-8.3); Neutrophils Percent Auto 66.1 % (45-73); Platelet Count 314 X10*3/uL (160-400); Red Blood Count 4.69 X10*6/uL (4.20-5.50); Red Cell Distribution Width 21.2 % (11.0-16.0); White Blood Count 4.7 X10*3/uL (4.8-10.8)
== END 2022-10-02 13:05 | disposition home or self-care (01) ==
LOC: HO.MDS 13:04
PROVIDERS: Visit Provider Internal Medicine Medical Oncology
DX: D50.9 Iron deficiency anemia, unspecified (principal)
CPT/HCPCS: 36415; 85025; 96365; J1756

== ENCOUNTER 2022-12-20 13:02 | Outpatient (REF) | payer MEDICAID, SELFPAY ==
[2022-12-21 02:36] LABS: CT PCR NOT DETECTED (Not Detect.); NG PCR NOT DETECTED (Not Detect.)
[2022-12-21 10:49] LABS: BV Int Neg Control Negative (Negative); BV Int Pos Control Positive (Positive)
== END 2022-12-20 13:03 | disposition home or self-care (01) ==
LOC: HO.LNP 13:02
PROVIDERS: PCP Registered Nurse; Visit Provider Advanced Practice Midwife
DX: Z01.419 Encounter for gynecological examination (general) (routine) without abnormal findings (principal); R35.0 Frequency of micturition; N89.8 Other specified noninflammatory disorders of vagina; Z20.2 Contact with and (suspected) exposure to infections with a predominantly sexual mode of transmission
CPT/HCPCS: 0353U; 81003; 87480; 87510; 87660

== ENCOUNTER 2022-12-20 13:46 | Outpatient (REF) | payer MEDICAID, SELFPAY | END 2022-12-20 13:47 | disposition home or self-care (01) | LOC: HO.LAB 13:46 | PROVIDERS: Visit Provider Advanced Practice Midwife | DX: Z13.89 Encounter for screening for other disorder (principal) ==

== ENCOUNTER 2022-12-21 13:12 | Outpatient (REF) | payer MEDICAID, SELFPAY ==
[2022-12-24 04:39] LABS: Syphilis Screen Nonreactive (Nonreactive)
[2022-12-24 04:45] LABS: HBc Num1 0.12 S/CO (0.00-0.79); HIV AB/AG Nonreactive (Nonreactive); HIV Num 1 0.07 S/CO (0.00-0.99); Hepatitis B Core Antibody Nonreactive (Nonreactive); ~HepC Num1 0.12 S/CO (0.00-0.79); ~Hepatitis C Antibody Nonreactive (Nonreactive)
== END 2022-12-21 13:13 | disposition home or self-care (01) ==
LOC: HO.LAB 13:12
PROVIDERS: PCP Registered Nurse; Visit Provider Advanced Practice Midwife
DX: Z11.4 Encounter for screening for human immunodeficiency virus [HIV] (principal); Z20.2 Contact with and (suspected) exposure to infections with a predominantly sexual mode of transmission
CPT/HCPCS: 36415; 86704; 86780; 86803; 87389

== ENCOUNTER 2023-02-25 13:45 | Outpatient (REF) | payer MEDICAID, SELFPAY ==
[2023-02-28 03:14] LABS: TS Negative Control Passed; TS Panel A 3; TS Panel B 1; TS Positive Control Passed; TSpotTB Negative (Negative)
== END 2023-02-25 13:46 | disposition home or self-care (01) ==
LOC: HO.HHCL 13:45
PROVIDERS: Visit Provider Registered Nurse
DX: Z11.1 Encounter for screening for respiratory tuberculosis (principal)
CPT/HCPCS: 36415; 86481

== ENCOUNTER 2023-03-14 19:12 | Outpatient (REF) | payer MEDICAID, SELFPAY ==
[2023-03-15 02:50] LABS: CT PCR NOT DETECTED (Not Detect.); NG PCR NOT DETECTED (Not Detect.)
[2023-03-15 13:21] LABS: BV Int Neg Control Negative (Negative); BV Int Pos Control Positive (Positive)
== END 2023-03-14 19:13 | disposition home or self-care (01) ==
LOC: HO.HHCLNP 19:12
PROVIDERS: Visit Provider Registered Nurse
DX: N89.8 Other specified noninflammatory disorders of vagina (principal)
CPT/HCPCS: 0353U; 87480; 87510; 87660

== ENCOUNTER 2023-08-09 11:07 | Outpatient (REF) | payer MEDICAID, SELFPAY ==
[2023-08-09 14:42] LABS: MANUAL DIFF FLAG NO
[2023-08-09 14:46] LABS: Basophils Percent Auto 0.6 % (0-2); Eosinophils Absolute Auto 0.3 X10*3/uL (0.0-0.4); Eosinophils Percent Auto 4.1 % (0-4); Hematocrit 43.4 % (37.0-47.0); Hemoglobin 13.4 g/dl (12.0-16.0); Imm Gran Abs Auto 0.01 X10*3/uL (0.00-0.03); Imm Gran Pct Auto 0.2 % (0.0-0.4); Lymphocytes Absolute Auto 1.4 X10*3/uL (1.2-4.9); Lymphocytes Percent Auto 21.4 % (20-40); Mean Corpuscular HGB Conc 30.9 g/dl (31.0-35.0); Mean Corpuscular Hemoglobin 25.8 pg (27.0-33.0); Mean Corpuscular Volume 83.5 fL (80.0-98.0); Mean Platelet Volume 11.6 fL (9.4-12.3); Monocytes Absolute Auto 0.4 X10*3/uL (0.1-1.2); Neutrophils Absolute Auto 4.3 x10*3/uL (2.0-8.3); Neutrophils Percent Auto 67.7 % (45-73); Platelet Count 304 X10*3/uL (160-400); Red Cell Distribution Width 14.3 % (11.0-16.0); White Blood Count 6.3 X10*3/uL (4.8-10.8)
[2023-08-09 15:07] LABS: Alanine Aminotransferase 22 U/L (0-31); Albumin Level 4.1 g/dL (3.5-5.0); Alkaline Phosphatase 90 U/L (39-117); Anion Gap 14 (12-20); Aspartate Amino Transferase 23 U/L (5-31); Bilirubin Total 0.3 mg/dL (0.0-1.0); Blood Urea Nitrogen 12 mg/dL (9-16); Calcium 9.7 mg/dL (8.4-10.2); Carbon Dioxide 28 mmol/L (22-29); Chloride 103 mmol/L (96-108); Cholesterol 189 mg/dL (<200); Estimated Glomerular Filt Rate > 60; Glucose Random 102 mg/dL (60-115); HDL Cholesterol 41 mg/dL (>40); Iron 87 mcg/dL (30-160); LDL Cholesterol Calculated 104 mg/dL (<100); Percent Iron Saturation 29 % (15-50); Sodium 141 mmol/L (135-145); Total Iron Binding Capacity 295 mcg/dL (228-428); Total Protein 7.6 g/dL (6.5-8.0); Triglycerides 223 mg/dL (<150); Unsaturated Iron Binding 208 ug/dL
[2023-08-09 15:26] LABS: Ferritin 50 ng/mL (10-250); Vitamin D 25-OH Total 27.7 ng/mL (>30)
== END 2023-08-09 11:08 | disposition home or self-care (01) ==
LOC: HO.CHCLDS 11:07
PROVIDERS: Visit Provider Registered Nurse
DX: Z00.00 Encounter for general adult medical examination without abnormal findings (principal); Z13.220 Encounter for screening for lipoid disorders
CPT/HCPCS: 36415; 80053; 80061; 82306; 82728; 83540; 85025

== ENCOUNTER 2023-09-17 11:11 | Outpatient (REF) | payer MEDICAID, SELFPAY ==
--- NOTE | ~2023-09-17 | MM_ITS ---
EXAMINATION: MM SCREENING DIGITAL BREAST TOMOSYNTHESIS, BILATERAL CLINICAL INFORMATION: Screening. Asymptomatic. COMPARISON: Mammography: This study is compared with prior exams dating back to 2013. TECHNIQUE: Digital breast tomosynthesis is performed in both the craniocaudal and mediolateral oblique views along with computer-aided detection (CAD). Synthesized 2D images are generated from the tomosynthesis. FINDINGS: There are scattered areas of fibroglandular density (ACR BI-RADS breast composition Category b). There are no significant masses, abnormal calcifications, or other abnormalities. MM/MM tomosynthesis screening BI IMPRESSION: No mammographic evidence of malignancy. ASSESSMENT: BI-RADS BI-RADS 1 - Negative RECOMMENDATION: Routine annual mammography screening. 1 year F/U This examination should not preclude the clinical evaluation of a suspicious palpable abnormality. This patient's information was entered into a reminder system with a target due date for their next mammogram.
== END 2023-09-17 11:12 | disposition home or self-care (01) ==
LOC: HO.MAMMO 11:11
PROVIDERS: PCP Registered Nurse; Visit Provider Registered Nurse
DX: Z12.31 Encounter for screening mammogram for malignant neoplasm of breast (principal)
CPT/HCPCS: 77063; 77067

== ENCOUNTER → 2023-09-17 11:30 | Outpatient (BNV) | payer MEDICAID, SELFPAY | PROVIDERS: PCP Registered Nurse; Visit Provider Radiology Diagnostic Radiology | DX: Z12.31 Encounter for screening mammogram for malignant neoplasm of breast (principal) | CPT/HCPCS: 77063; 77067 ==